=== PATIENT | male | born 1960 | race Caucasian/White ===

== ENCOUNTER 2018-09-24 08:52 | Observation (INO) | payer BC ==
[2018-09-24 11:51] LABS: Basophils % (A) 0 %; Eosinophils # (A) 0.1 k/uL (0-0.7); Eosinophils % (A) 1 %; HCT 45.8 % (39.0-53.0); HGB 14.6 gm/dL (13.0-17.5); Lymphocytes # (A) 1.3 k/uL (1.0-4.8); Lymphocytes % (A) 11 %; MCH 30.2 pg (25.0-35.0); MCHC 31.8 g/dL (31.0-37.0); MCV 95.1 fL (80.0-100.0); Mean Platelet Volume 7.9; Monocytes # (A) 0.8 k/uL (0-1.0); Monocytes % (A) 7 %; Neutrophils % (A) 79 %; Platelet Count 224 k/uL (150-450); RBC 4.82 m/uL (4.30-5.90); RDW 13.3 % (11.5-15.5); WBC 11.4 k/uL (3.8-10.6)
[2018-09-24 12:05] LABS: ALT 36 U/L (21-72); AST 26 U/L (17-59); Albumin 4.7 g/dL (3.5-5.0); Alkaline Phosphatase 75 U/L (38-126); Anion Gap 8 mmol/L; Blood Urea Nitrogen 23 mg/dL (9-20); Carbon Dioxide 26 mmol/L (22-30); Chloride 107 mmol/L (98-107); Glucose 105 mg/dL (74-99); Potassium 4.3 mmol/L (3.5-5.1); Sodium 141 mmol/L (137-145); Total Bilirubin 0.7 mg/dL (0.2-1.3); Total Protein 7.5 g/dL (6.3-8.2)
[2018-09-24 12:21] VITALS: BMI 23.5
[2018-09-24] MEDS: METOPROLOL TARTRATE 25 MG TAB PO SCH ×2 (14:21→20:34)
[2018-09-24] MEDS ORDERED: NITROGLYCERIN SL TABS 0.4 MG TAB SUBLINGUAL PRN (15:27)
--- NOTE | 2018-09-24 15:29 | P.CRDCN ---
History of Present Illness History of present illness: This is a pleasant 57-year-old male past medical history significant for gastroesophageal reflux disease, osteoarthritis, frequent palpitations in the past and occasional marijuana use. He denies history of coronary artery disease and has never seen a scout leaser for any reason. He presented to the hospital this morning for an outpatient Nino protocol stress test. Initially prior to starting his stress test he was in sinus mechanism no acute ST or T wave abnormalities noted. However once he began exercising and approximately 7 minutes into exercise he went into a wide complex tachycardia that appears to be a right ventricular outflow tachycardia. He became acutely dizzy and short of breath. Stress testing was stopped and he was admitted to the hospital for further evaluation. He denies symptoms of chest discomfort. At the time of my exam: CONSTITUTIONAL: Denies fever. Denies chills. EYES: Denies blurred vision. Denies vision changes. Denies eye pain. EARS, NOSE, MOUTH & THROAT: Denies headache. Denies sore throat. Denies ear pain. CARDIOVASCULAR: Denies chest pain. Denies shortness of breath. Denies orthopnea. Denies PND. Denies palpitations. RESPIRATORY: Denies cough. GASTROINTESTINAL: Denies abdominal pain. Denies diarrhea. Denies constipation. Denies nausea. Denies vomiting. MUSCULOSKELETAL: Denies myalgias. INTEGUMENTARY: Denies pruitis. Denies rash. NEUROLOGIC: Denies numbness. Denies tingling. Denies weakness. PSYCHIATRIC: Denies anxiety. Denies depression. ENDOCRINE: Denies fatigue. Denies weight change. Denies polydipsia. Denies polyurina. GENITOURINARY: Denies burning, hematuria or urgency with micturation. HEMATOLOGIC: Denies history of anemia. Denies bleeding. GENERAL: This is a 57-year-old male in no apparent distress at the time of my examination. HEENT: Head is atraumatic, normocephalic. Pupils are equal, round. Sclerae anicteric. Conjunctivae are clear. Mucous membranes of the mouth are moist. Neck is supple. There is no jugular venous distention. No carotid bruit is heard. LUNGS: Clear to auscultation no wheezes, rales or rhonchi. No chest wall tenderness is noted on palpation or with deep breathing. HEART: Regular rate and rhythm without murmurs, rubs or gallops. S1 and S2 heard. ABDOMEN: Soft, nontender. Bowel sounds are heard. No organomegaly noted. EXTREMITIES: No evidence of peripheral edema and no calf tenderness noted. VASCULAR: Radial and dorsalis pedis pulses palpated, no evidence of clubbing. NEUROLOGIC: Patient is awake, alert and oriented x3. ASSESSMENT Wide complex tachycardia while undergoing stress test, symptomatic Gastroesophageal reflux disease Marijuana use PLAN We will recommend placing the patient on observation for further evaluation of this acute arrhythmia. We have discussed this with his primary care physician Dr. Salinas and he will be admitted under [facility]. Dr. Hall has accepted the admit. We will obtain a 2-D echocardiogram and Doppler study to assess cardiac structure and function. Check CBC, CMP, magnesium level and TSH. Initiate the patient on metoprolol 25 mg twice a day. We will request he is seen and evaluated by Dr. Patterson as well. Further recommendations to follow. The plan has been discussed with the patient. Thank you kindly for this consultation. Nurse Practitioner note has been reviewed, I agree with a documented findings and plan of care. Patient was seen and examined. Past Medical History Past Medical History: GERD/Reflux, Osteoarthritis (OA) Additional Past Medical History / Comment(s): Pt states he recently had food poisoning and was seen for this and noted to be bradycardic, pt states he has felt "skipped" heart beats in the past, cervical bone spurs, occasional headaches, arthritis in his hands. History of Any Multi-Drug Resistant Organisms: None Reported Past Surgical History: No Surgical Hx Reported Additional Past Anesthesia/Blood Transfusion Reaction / Comment(s): Pt has never had general or spinal anesthesia. Smoking Status: Never smoker - Past Family History Father Family Medical History: Congestive Heart Failure (CHF), Hypertension Additional Family Medical History / Comment(s): Father of CHF at the age of 80yrs. Mother Family Medical History: Vascular Disorder Additional Family Medical History / Comment(s): Mother from a ruptured aortic aneurysm at the age of 84 yrs. Medications and Allergies Home Medications Medication Instructions Recorded Confirmed Type Naproxen Sodium [Aleve] 440 mg PO Q12HR PRN 12/21/15 09/24/18 History Allergies Allergy/AdvReac Type Severity Reaction Status Date / Time No Known Allergies Allergy Verified 09/24/18 13:02 Physical Exam Vitals: Vital Signs Temp Pulse Resp BP Pulse Ox 09/24/18 11:05 97.7 F 67 20 189/99 97 Intake and Output 09/23/18 09/24/18 09/24/18 22:59 06:59 14:59 Other: Weight 72.2 kg Results 09/24/18 11:30 09/24/18 11:30 Cardiac Enzymes 09/24/18 09/24/18 Range/Units 11:30 11:30 AST 26 (17-59) U/L Troponin I <0.012 (0.000-0.034) ng/mL CBC 09/24/18 Range/Units 11:30 WBC 11.4 H (3.8-10.6) k/uL RBC 4.82 (4.30-5.90) m/uL Hgb 14.6 (13.0-17.5) gm/dL Hct 45.8 (39.0-53.0) % Plt Count 224 (150-450) k/uL Comprehensive Metabolic Panel 09/24/18 Range/Units 11:30 Sodium 141 (137-145) mmol/L Potassium 4.3 (3.5-5.1) mmol/L Chloride 107 (98-107) mmol/L Carbon Dioxide 26 (22-30) mmol/L BUN 23 H (9-20) mg/dL Creatinine 0.96 (0.66-1.25) mg/dL Glucose 105 H (74-99) mg/dL Calcium 10.0 (8.4-10.2) mg/dL AST 26 (17-59) U/L ALT 36 (21-72) U/L Alkaline Phosphatase 75 (38-126) U/L Total Protein 7.5 (6.3-8.2) g/dL Albumin 4.7 (3.5-5.0) g/dL Current Medications Generic Name Dose Route Start Last Admin Trade Name Freq PRN Reason Stop Dose Admin Metoprolol Tartrate 25 mg 09/24/18 12:30 Lopressor PO BID WM Intake and Output 09/23/18 09/24/18 09/24/18 22:59 06:59 14:59 Other: Weight 72.2 kg Patient Weight 09/25/18 06:59 Weight 72.2 kg 09/24/18 11:30 09/24/18 11:30
--- NOTE | 2018-09-24 18:29 | ECHOF ---
Referral Reason:arrhythmia MEASUREMENTS -------- HEIGHT: 175.3 cm WEIGHT: 72.6 kg BP: RVIDd: 3.2 cm (< 3.3) IVSd: 0.9 cm (0.6 - 1.1) LVIDd: 4.7 cm (3.9 - 5.3) LVPWd: 1.0 cm (0.6 - 1.1) IVSs: 1.4 cm LVIDs: 2.6 cm LVPWs: 1.9 cm LAESV Index (A-L): 20.16 ml/m Ao Diam: 3.0 cm (2.0 - 3.7) AV Cusp: 2.1 cm (1.5 - 2.6) LA Diam: 2.8 cm (2.7 - 3.8) MV EXCURSION: 15.965 mm (> 18.000) MV EF SLOPE: 116 mm/s (70 - 150) EPSS: 0.4 cm MV E Toni: 0.75 m/s MV DecT: 219 ms MV A Toni: 1.21 m/s MV E/A Ratio: 0.62 AR PHT: 507 ms RAP: 5.00 mmHg RVSP: 27.48 mmHg FINDINGS -------- Sinus rhythm with extra systolic beats. This was a technically good study. The left ventricular size is normal. Left ventricular wall thickness is normal. Overall left vent ricular systolic function is normal with, an EF between 55 - 60 %. The right ventricle is normal in size. Normal LA size by volume 22+/-6 ml/m2. The right atrial size is normal. The aortic valve is trileaflet and appears structurally normal. Trace amount of aortic regurgitatio n. The mitral valve leaflets are mildly thickened. Mild mitral regurgitation is present. Mild tricuspid regurgitation present. The right ventricular systolic pressure, as measured by Doppl er, is 27.48mmHg. There is no pulmonic regurgitation present. The aortic root size is normal. Normal inferior vena cava with normal inspiratory collapse consistent with estimated right atrial pre ssure of 5 mmHg. The pericardium is normal. CONCLUSIONS -------- 1. Sinus rhythm with extra systolic beats. 2. This was a technically good study. 3. The left ventricular size is normal. 4. Left ventricular wall thickness is normal. 5. Overall left ventricular systolic function is normal with, an EF between 55 - 60 %. 6. The right ventricle is normal in size. 7. Normal LA size by volume 22+/-6 ml/m2. 8. The right atrial size is normal. 9. The aortic valve is trileaflet and appears structurally normal. 10. Trace amount of aortic regurgitation. 11. The mitral valve leaflets are mildly thickened. 12. Mild mitral regurgitation is present. 13. Mild tricuspid regurgitation present. 14. The right ventricular systolic pressure, as measured by Doppler, is 27.48mmHg. 15. There is no pulmonic regurgitation present. 16. The aortic root size is normal. 17. Normal inferior vena cava with normal inspiratory collapse consistent with estimated right atrial pressure of 5 mmHg. 18. The pericardium is normal. ROLL OVER PRESS OPERATOR: Yumiko Doss RDCS
[2018-09-24 20:00] VITALS: RESP 16
--- NOTE | 2018-09-24 22:50 | HP ---
HISTORY AND PHYSICAL DATE OF ADMISSION AND SERVICE: 09/24/2018. PRESENTING COMPLAINT: Abnormal stress test. HISTORY OF PRESENTING COMPLAINT: This is a pleasant 57-year-old patient of Dr. Jurgen Salinas. The patient had gone to see his physician special education assistant, and the physician special education assistant noted the patient to have a low heart rate. The patient was sent down to Cardiology. The patient went for a Nino protocol stress test, and probably about 7 minutes into the stress test the patient became dizzy, became short of breath, perspiring, and was noted to have a wide-complex tachycardia, for which he was admitted to the medical floor. He has had no further episodes since then. The patient is rather active and has good exercise tolerance otherwise. The patient was started on Lopressor by Cardiology. REVIEW OF SYSTEMS: CONSTITUTIONAL: None. HEENT: None. RESPIRATORY: None. CARDIOVASCULAR: As above. GASTROINTESTINAL: Heartburn. GENITOURINARY: None. MUSCULOSKELETAL: Arthritic pain in the hands. DERMATOLOGICAL: None. HEMATOLOGICAL: None. LYMPHATICS: None. PSYCHIATRY: None. NEUROLOGICAL: None. PAST MEDICAL HISTORY: 1. GERD. 2. Osteoarthritis. 3. Recent food poisoning. PAST SURGICAL HISTORY: No surgery. SOCIAL HISTORY: Lives with his . He is a electric welder. Marijuana occasionally. Alcohol occasionally. FAMILY HISTORY: Congestive heart failure, hypertension. Father had congestive heart failure. Mother had abdominal aortic aneurysm. HOME MEDICATIONS: Aleve 440 mg q.12 p.r.n. ALLERGIES: NONE. PHYSICAL EXAMINATION: Temperature 97.8, pulse 55, respiration 16, blood pressure 172/84, pulse ox 97% on room air. GENERAL APPEARANCE: Average build. Sitting up. Comfortable. EYES: Pupils equal. Conjunctivae normal. HEENT: External appearance of nose and ears normal. Oral cavity normal. NECK: JVD not raised. Mass not palpable. RESPIRATORY: Effort normal. Lungs are clear. CARDIOVASCULAR: First and second sounds normal. No edema. ABDOMEN: Soft, non-tender. Liver and spleen not palpable. LYMPHATIC: No lymph node palpable in neck or axillae. PSYCHIATRY: Alert and oriented x3. Mood and affect normal. NEUROLOGICAL: Pupils equal. Cranial nerves grossly intact. Power and sensation grossly intact. MUSCULOSKELETAL: Evidence of osteoarthritis, especially in the hands. INVESTIGATION: White count 11.4, hemoglobin 14.6, potassium 4.3, BUN 22, creatinine 0.96. Troponin negative. TSH normal. Two-D echocardiogram shows EF of 55% to 60%. ASSESSMENT: 1. Wide-complex tachycardia during the Nino stress protocol with symptoms of dizziness, shortness of breath and perspiration. 2. Gastroesophageal reflux disease. 3. Primary osteoarthritis of the hands. 4. Recreational marijuana use. 5. Essential hypertension. PLAN: Patient is currently on beta tia. Blood pressure is tending to run high. Will see how he does. Care was discussed with the patient. MMODL / IJN: [id number] /
[2018-09-25] MEDS: METOPROLOL TARTRATE 25 MG TAB PO SCH (08:02)
[2018-09-25 08:14] LABS: HCT 45.1 % (39.0-53.0); HGB 14.4 gm/dL (13.0-17.5); MCH 30.2 pg (25.0-35.0); MCV 94.3 fL (80.0-100.0); Mean Platelet Volume 8.1; Platelet Count 218 k/uL (150-450); RBC 4.78 m/uL (4.30-5.90); RDW 13.1 % (11.5-15.5); WBC 9.7 k/uL (3.8-10.6)
[2018-09-25 08:37] LABS: Anion Gap 12 mmol/L; Blood Urea Nitrogen 21 mg/dL (9-20); Calcium 9.8 mg/dL (8.4-10.2); Carbon Dioxide 20 mmol/L (22-30); Chloride 108 mmol/L (98-107); Glucose 76 mg/dL (74-99); Magnesium 1.9 mg/dL (1.6-2.3); Potassium 4.2 mmol/L (3.5-5.1); Sodium 140 mmol/L (137-145)
--- NOTE | 2018-09-25 09:20 | P.CRDCN ---
History of Present Illness History of present illness: This is Dr. 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 I explained his treatment options including medical treatment and EP study rate efficacy ablation. I wo uld recommend an EP study and ablation in the future at this time he may continue metoprolol 25 mg once daily, succinate. His heart rates usually run in the 50s-60s per minute at rest Success rates of greater than 90%, failure rates and the reason for the failure rates were explained, complications rates including but not limited to cardiac puncture electrical damage vascular injury were discussed. All questions were answered He will see Dr. VC Escoto within a week and thereafter will call to schedule for the procedure HPI Patient went to see his primary care physician Dr. Espinal. He was complaining of nausea and thought he had gastroenteritis. His heart rate was found to be in the slow side and therefore he was sent for stress test. When he ran on the treadmill he experienced ventricular tachycardia, exercise-induced originating from the right ventricular outflow tract he was short of breath and dizzy with this on more detailed questioning he does complain of palpitations although he has never had syncope nor has he felt like this before No diabetes hypertension dyslipidemia No family history of premature deaths or sudden of recurrent syncope ROS: No fever chills or rigors, no cough, phlegm or expectoration, no nausea, vomiting or diarrhea, no hematuria, dysuria, no musculoskeletal complaints, no strokes or seizures, no skin lesions. EXAMINATION: Blood pressure 131/82 mmHg pulse rate in the 50s him respirations afebrile Breath sounds are clear no rhonchi no crackles Normal heart sounds no murmurs or gallops no rub Abdomen soft Extended is warm no edema REVIEW OF LABS, ECG & MEDICAL DATA Normal hemoglobin of 14.4 normal white count Normal electrolytes normal renal function normal liver functions normal troponin Normal TSH Magnesium 1.9 Past Medical History Past Medical History: GERD/Reflux, Osteoarthritis (OA) Additional Past Medical History / Comment(s): Pt states he recently had food poisoning and was seen for this and noted to be bradycardic, pt states he has felt "skipped" heart beats in the past, cervical bone spurs, occasional headaches, arthritis in his hands. History of Any Multi-Drug Resistant Organisms: None Reported Past Surgical History: No Surgical Hx Reported Additional Past Anesthesia/Blood Transfusion Reaction / Comment(s): Pt has never had general or spinal anesthesia. Smoking Status: Never smoker - Past Family History Father Family Medical History: Congestive Heart Failure (CHF), Hypertension Additional Family Medical History / Comment(s): Father of CHF at the age of 80yrs. Mother Family Medical History: Vascular Disorder Additional Family Medical History / Comment(s): Mother from a ruptured aortic aneurysm at the age of 84 yrs. Medications and Allergies Home Medications Medication Instructions Recorded Confirmed Type Naproxen Sodium [Aleve] 440 mg PO Q12HR PRN 12/21/15 09/24/18 History Allergies Allergy/AdvReac Type Severity Reaction Status Date / Time No Known Allergies Allergy Verified 09/24/18 13:02 Physical Exam Vitals: Vital Signs Temp Pulse Resp BP Pulse Ox 09/25/18 08:00 97.7 F 58 L 16 162/80 97 09/25/18 05:26 98.5 F 60 16 131/82 98 09/25/18 00:00 98.2 F 54 L 16 142/87 98 09/24/18 19:55 97.8 F 55 L 16 172/84 97 09/24/18 15:16 98.1 F 55 L 20 153/82 97 09/24/18 11:05 97.7 F 67 20 189/99 97 Intake and Output 09/24/18 09/25/18 09/25/18 22:59 06:59 14:59 Intake Total 250 20 270 Balance 250 20 270 Intake: IV 10 20 10 0.9 10 Invasive Line 1 20 10 Oral 240 260 Other: Voiding Method Toilet Toilet # Voids 1 Weight 70.7 kg Results 09/25/18 07:43 09/25/18 07:43 Cardiac Enzymes 09/24/18 09/24/18 Range/Units 11:30 11:30 AST 26 (17-59) U/L Troponin I <0.012 (0.000-0.034) ng/mL CBC 09/24/18 09/25/18 Range/Units 11:30 07:43 WBC 11.4 H 9.7 (3.8-10.6) k/uL RBC 4.82 4.78 (4.30-5.90) m/uL Hgb 14.6 14.4 (13.0-17.5) gm/dL Hct 45.8 45.1 (39.0-53.0) % Plt Count 224 218 (150-450) k/uL Comprehensive Metabolic Panel 09/24/18 09/25/18 Range/Units 11:30 07:43 Sodium 141 140 (137-145) mmol/L Potassium 4.3 4.2 (3.5-5.1) mmol/L Chloride 107 108 H (98-107) mmol/L Carbon Dioxide 26 20 L (22-30) mmol/L BUN 23 H 21 H (9-20) mg/dL Creatinine 0.96 1.00 (0.66-1.25) mg/dL Glucose 105 H 76 (74-99) mg/dL Calcium 10.0 9.8 (8.4-10.2) mg/dL AST 26 (17-59) U/L ALT 36 (21-72) U/L Alkaline Phosphatase 75 (38-126) U/L Total Protein 7.5 (6.3-8.2) g/dL Albumin 4.7 (3.5-5.0) g/dL Current Medications Generic Name Dose Route Start Last Admin Trade Name Freq PRN Reason Stop Dose Admin Metoprolol Tartrate 25 mg 09/24/18 12:30 09/25/18 08:02 Lopressor PO 25 mg BID WM Administration Nitroglycerin 0.4 mg 09/24/18 15:27 Nitrostat SUBLINGUAL Q5M PRN Chest Pain Intake and Output 09/24/18 09/25/18 09/25/18 22:59 06:59 14:59 Intake Total 250 20 270 Balance 250 20 270 Intake: IV 10 20 10 0.9 10 Invasive Line 1 20 10 Oral 240 260 Other: Voiding Method Toilet Toilet # Voids 1 Weight 70.7 kg 09/25/18 07:43 09/25/18 07:43
--- NOTE | 2018-09-25 09:21 | P.PRLE ---
RE: Izaiah Thompsonr Jurgen Mr. Thompson experienced right ventricular outflow tract VT during stress testing associated with shortness of breath and dizziness. He is currently on low-dose metoprolol but I would recommend proceeding with an EP study and ablation. His TSH is normal and his chronic enzymes are normal electrolytes were normal He does have a history of palpitations but he has never experienced of felt sustained arrhythmias Thank you for entrusting me with the care of the patient Warm regards Sincerely Ha Patterson
[2018-09-25] MEDS ORDERED: MAGNESIUM OXIDE 400 MG TAB PO STA (09:34)
[2018-09-25 11:02] VITALS: BP 149/86; PULSE 52; TEMP 98.2
--- NOTE | 2018-09-25 15:00 | EST ---
EXERCISE STRESS AGE: 57 SEX: Male. HT: 69" WT: 165 pounds PROTOCOL: STAGE: 3 DURATION OF EXERCISE: 7:23 HEART RATE REST: BLOOD PRESSURE REST: 148/98 MAXIMUM HEART RATE ACHIEVED: 121 MAXIMUM BLOOD PRESSURE: 192/91 85% MPHR: 138 100% MPHR: 162 METS: 9.3 INDICATIONS: Bradycardia, chest pain. CLINICAL INFORMATION: The patient was exercised for a total period of 7 minutes and 30 seconds. Peak heart rate of 121 was achieved. Maximum blood pressure of 190/91 mmHg was noted. The test was terminated because of cardiac arrhythmia. Resting EKG shows normal sinus rhythm with a QRS morphology suggestive of incomplete right bundle branch block pattern noted. Occasional PVCs were noted in the early part of the exercise. During the 7 minutes in exercise, patient had one run of non-sustained ventricular tachycardia. Subsequently patient continued to have PVCs. At peak exercise patient developed wide QRS complex tachycardia of left bundle branch block pattern. It was suggestive of right ventricular outflow tract tachycardia. The patient did not have any symptoms, and subsequently patient converted to normal sinus rhythm. FINAL IMPRESSION: This patient had intermittent PVCs during exercise and at the peak exercise patient developed wide QRS complex tachycardia suggestive of right ventricular outflow tract tachycardia, which persisted for about 2 minutes in the immediate post-exercise period. This was not associated with any symptoms. Intermittent subsequent PVCs were noted in the recovery. In view of the cardiac arrhythmia, patient was admitted to the observation unit for observation. NAIF / TONO: [id number] /
--- NOTE | 2018-09-26 09:03 | DS ---
DISCHARGE SUMMARY DATE OF ADMISSION: 09/24/18 DATE OF DISCHARGE: 09/25/18. FINAL DIAGNOSES: 1. Wide-complex outflow tract tachycardia symptomatic during Nino stress protocol. 2. Gastroesophageal reflux disease. 3. Primary osteoarthritis of the hands. 4. Recreational marijuana use. 5. Essential hypertension. HOSPITAL COURSE: This patient above underwent above arrhythmia during Nino stress protocol and that had to be discontinued, admitted. Seen by Dr. Ha Patterson. The patient remained stable overnight in the hospital. The patient will be followed up with an EP study. PHYSICAL EXAMINATION: Temperature 98.2, pulse 72, respiration 16, blood pressure 149/86, pulse ox 95% on room air. Lungs: Fair entry. Cardiovascular: 1st and 2nd sounds normal. INVESTIGATION: Potassium 4.2. DISCHARGE MEDICATIONS: 1. Naproxen 450 mg q.12 p.r.n. 2. Lopressor 25 mg p.o. b.i.d. Follow with Dr. Jurgen Salinas in [address] Sacha Escoto on 09/30/18. MMODL / IJN: [id number] /
== END 2018-09-25 14:36 | disposition home or self-care (01) ==
LOC: RADNMMAIN 08:52 → 3SCARD 11:14
PROVIDERS: ADMIT Hospitalist; ATTEND Hospitalist
DX: R00.0 Tachycardia, unspecified (principal); K21.9 Gastro-esophageal reflux disease without esophagitis; M19.042 Primary osteoarthritis, left hand; M19.041 Primary osteoarthritis, right hand; R94.39 Abnormal result of other cardiovascular function study; R00.2 Palpitations; I10 Essential (primary) hypertension; Z82.49 Family history of ischemic heart disease and other diseases of the circulatory system
CPT/HCPCS: 93017; 93306; 80053; 80048; 84443; 83735; 84484; 85025; 85027; G0378 ×2

== ENCOUNTER → 2018-10-29 | Outpatient (CLI) | payer BC ==
[2018-10-29 16:50] LABS: Potassium 4.2 mmol/L (3.5-5.1)
[2018-10-29 16:59] LABS: HCT 40.2 % (39.0-53.0); HGB 13.4 gm/dL (13.0-17.5); MCH 31.1 pg (25.0-35.0); MCHC 33.3 g/dL (31.0-37.0); MCV 93.4 fL (80.0-100.0); Mean Platelet Volume 8.1; Platelet Count 225 k/uL (150-450); RBC 4.31 m/uL (4.30-5.90); RDW 13.5 % (11.5-15.5); WBC 7.7 k/uL (3.8-10.6)
== END ==
LOC: LABPAT 15:57
PROVIDERS: ATTEND Internal Medicine Cardiovascular Disease
DX: Z01.812 Encounter for preprocedural laboratory examination (principal); I47.2 Ventricular tachycardia
CPT/HCPCS: 36415; 80051; 82565; 84520; 85027

== ENCOUNTER 2018-11-05 10:49 | Day surgery (SDC) | payer BC ==
[~2018-11-05 10:49] MED LIST: ALPRAZolam 0.25 MG TAB PO PRN; ALPRAZolam 0.5 MG TAB PO PRN; ASPIRIN 325 MG TAB PO STA; ATORVASTATIN 80 MG TAB PO STA; NITROGLYCERIN SL TABS 0.4 MG TAB SUBLINGUAL PRN; SODIUM CHLORIDE 0.9% 1,000 ML in EMPTY BAG 1 BAG IV ONE
[2018-11-05] MEDS ORDERED: SODIUM CHLORIDE 0.9% 1,000 ML IV ONE (11:30)
[2018-11-05] MEDS ORDERED: MIDAZOLAM (PF) 2 MG/2 ML VIAL IVP ONE (14:03)
[2018-11-05] MEDS ORDERED: fentaNYL (PF) 50 MCG/ML 2 ML AMP IV ONE (14:03)
[2018-11-05] MEDS ORDERED: LIDOCAINE 1% INJ 10MG/ML (20 ML MDV) SQ ONE (14:05)
[2018-11-05] MEDS ORDERED: IOPAMIDOL-370 100ML BTL INJ ONE (14:19)
[2018-11-05] MEDS ORDERED: IOPAMIDOL-370 50ML BTL INJ ONE (14:19)
[2018-11-05] MEDS ORDERED: RX INFO: IV CONTRAST WAS GIVEN 1 EACH MISC MISCELLANE PRN (14:37)
[2018-11-05] MEDS ORDERED: SODIUM CHLORIDE 0.9% 1,000 ML IV SCH (14:45)
[2018-11-05 15:17] VITALS: BMI 23.3
[2018-11-05 20:40] VITALS: BP 139/83; TEMP 98.5
[2018-11-05 20:45] VITALS: PULSE 56; RESP 17
--- NOTE | 2019-01-04 12:03 | CC ---
CARDIAC CATHETERIZATION REPORT Mr. Thompson is a 58-year-old gentleman who was initially evaluated for atypical chest pain. Patient developed right ventricular outflow tract tachycardia during exercise. In view of that, the patient was recommended to have a cardiac catheterization for definitive diagnosis. PROCEDURE: The right groin was prepped and draped in the usual manner and the skin was infiltrated with 1% Xylocaine. The right femoral artery was obtained with micropuncture needle under ultrasound guidance. A #6-Mozambican sheath was placed in. Selective coronary angiography was then performed in multiple projections and good hemostasis was achieved. HEMODYNAMICS: The left ventricular end-diastolic pressure is 18-20 mmHg prior to angiography. No gradient is noted across the aortic valve. Left main coronary artery is normal and patent. LAD is a good caliber blood vessel and gives a good size diagonal branch. LAD and its branches are normal. Circumflex coronary artery gives rise to a good size obtuse marginal branch. The circumflex coronary artery and its branches are normal right coronary artery is a normal caliber blood vessel. It is dominant in distribution and it is normal. FINAL IMPRESSION: This study reveals normal coronary arteries. Left ventricular end-diastolic pressure is mildly elevated. RECOMMENDATION: Medical treatment. Patient is supposed to undergo the VT, right ventricular outflow tract tachycardia ablation in a couple of weeks by Dr. Patterson. MMODL / IJN: [id number] /
== END 2018-11-05 21:30 | disposition home or self-care (01) ==
LOC: CATHCVL 10:49 → 1SOBS 14:30 → CATHCVL 21:30
PROVIDERS: ATTEND Internal Medicine Cardiovascular Disease
DX: I47.2 Ventricular tachycardia (principal); Z79.1 Long term (current) use of non-steroidal anti-inflammatories (NSAID); Z79.899 Other long term (current) drug therapy
CPT/HCPCS: 93458; C1894; C1769; J2001; J3010; Q9967 ×2; J2250

== ENCOUNTER 2018-11-25 07:49 | Day surgery (SDC) | payer BC ==
[2018-11-23 11:34] VITALS: BMI 23.6
[2018-11-25] MEDS ORDERED: MIDAZOLAM (PF) 2 MG/2 ML VIAL IV PRN (10:09)
[2018-11-25] MEDS ORDERED: ONDANSETRON 4 MG/2 ML VIAL IVP STA (14:30)
[2018-11-25] MEDS ORDERED: MIDAZOLAM 2 MG/2 ML VIAL ONE (14:39)
[2018-11-25] MEDS ORDERED: fentaNYL (PF) 50 MCG/ML 2 ML AMP ONE (14:39)
[2018-11-25] MEDS ORDERED: SODIUM CHLORIDE 0.9% 1,000 ML IV ONE (14:42)
[2018-11-25] MEDS ORDERED: LIDOCAINE 1% INJ 10MG/ML (20 ML MDV) ONE (14:51)
[2018-11-25] MEDS ORDERED: LIDOCAINE 1% INJ 10MG/ML (20 ML MDV) SQ ONE (15:13)
[2018-11-25] MEDS ORDERED: HEPARIN SODIUM (1,000 UNIT/ML) 1,000 UNIT in SODIUM CHLORIDE 0.9% 1,000 ML IRRIGATION ONE (15:52)
[2018-11-25] MEDS ORDERED: ACETAMINOPHEN TAB 325 MG TAB PO PRN (16:50)
[2018-11-25] MEDS ORDERED: ACETAMINOPHEN IV (For NPO) 1,000 MG in EMPTY BAG 1 BAG IVPB ONE (16:50)
[2018-11-25] MEDS ORDERED: HYDROcodone/APAP 5-325MG 1 EACH TAB PO PRN (16:50)
--- NOTE | 2018-11-25 17:07 | P.PRLE ---
RE: Izaiah Thompsonr Jurgen Mr. Thompson underwent a diagnostic EP study and a detailed mapping of his right ventricular PVCs. However the PVCs were mapped exactly on to the His bundle. We are 100% pace map as well as a perfect activation map right over the His bundle Therefore obviously we did not ablate the focus and instead started him on flecainide 50 g twice daily. I have stopped metoprolol We will see him again in follow-up in a week Thank you for entrusting me with the care of the patient Warm regards Sincerely Ha Patterson
[2018-11-25] MEDS: SODIUM CHLORIDE 0.9% 1,000 ML IV SCH (19:39)
[2018-11-25] MEDS: FLECAINIDE 50 MG TAB PO SCH (21:49)
--- NOTE | 2018-11-25 22:23 | PCN ---
PROCEDURE NOTE This is a 58-year-old male patient of Dr. Jurgen Salinas and Dr. Sacha Escoto who was referred for evaluation and management of very frequent PVCs and nonsustained ventricular tachycardia that appeared to be originating from the right ventricle. He underwent coronary angiography which did not reveal any coronary artery disease. His LV and RV size and function is normal. DESCRIPTION OF PROCEDURE: Patient was brought to the EP lab in a fasting state. Written informed consent was obtained prior to the procedure. The right and left groins were prepped and draped as per protocol. 1% lidocaine was used for local anesthesia. Venous sheaths were placed in the right femoral vein and via these, diagnostic and mapping ablation catheters were placed. Sinus cycle length 908 milliseconds, NE interval 140 milliseconds, QRS 103 milliseconds QT 356 milliseconds. AH interval 86 milliseconds, HV interval 35 milliseconds. The patient was experiencing frequent PVCs that had a left bundle branch block morphology on lead V1 and upright QRS in 2, 3 and AVF as well as an upright QRS is in lead 1. Intracardiac echocardiography was performed. A 3D anatomic map of the right ventricle was made and the tricuspid and pulmonic valves were tagged. The 3D mapping of the aortic root was performed. Thereafter, mapping ablation catheter was placed in the right ventricle and electroanatomic 3D mapping was performed. An activation map as well as pace mapping was performed. The activation pace mapping revealed that the earliest site was exactly on the proximal his bundle. Excellent early bipolar electrograms were noted at this site. The unipolar electrogram was deep negative at this site. Therefore decision was made not to proceed with RF ablation because of risk of AV block. This was discussed with the patient. I discussed with the family. We will treat him with flecainide 50 mg twice daily and stop metoprolol. IMPRESSION: Diagnostic EP study 3D electro anatomic mapping revealed that the clinical PVC was originating from very close to the His bundle area. There was a His bundle signal at the earliest activation site. RF ablation obviously was not performed for risk of AV block. PLAN: Continue flecainide 50 mg twice daily and follow up with Dr. Patterson in about 6 weeks for followup Holter monitor. MMODL / IJN: [id number] /
[2018-11-26 05:17] VITALS: PULSE 56
--- NOTE | 2018-11-26 07:38 | P.DS ---
Providers Attending physician: Ha Patterson Primary care physician: [facility] Course: Patient is doing well. He is lying comfortably in bed. He has no chest discomfort dizziness lightheadedness palpitations Yesterday I started him on flecainide 50 mg twice daily Today his telemetry shows normal sinus rhythm Twelve-lead ECG shows sinus rhythm normal cardiac intervals no PVCs His vitals are stable But pressure 131/72 mmHg, respirations heart rates in the 50s afebrile 98.3F Breath sounds are clear no rhonchi no crackles no adventitious sounds Normal heart sounds normal S1 normal S2 no murmurs or gallops or rub Extremities warm no edema Impression PVCs originating from the right ventricle, in the area of the His bundle. Activation mapping as well as pace mapping revealed that the ventricular focus is exactly on the His bundle area. In sinus rhythm is a His bundle spike of this area Therefore ablation was withheld Flecainide was initiated Plan Follow-up with Dr. Escoto in about a week for a groin check Follow-up with Dr. Trujillo in about 6 weeks to assess efficacy and tolerance to flecainide Plan - Discharge Summary Discharge Rx Participant: No New Discharge Prescriptions: No Action Metoprolol Tartrate [Lopressor] 25 mg PO DAILY Discharge Medication List Metoprolol Tartrate [Lopressor] 25 mg PO DAILY 11/05/18 [History] Follow up Appointment(s)/Referral(s): London Escoto MD [STAFF PHYSICIAN] - 2 Weeks Activity/Diet/Wound Care/Special Instructions: Post EP study - Ablation instructions 1. Keep access sites dry for 2 days. 2. No heavy lifting or straining for 2 days. 3. Avoid bending the hips repeatedly for 2 days. 4. You may go up and down stairs slowly Call if the following is noted 1. Bleeding, increasing swelling or pain at the access sites. 2. Increasing chest discomfort, especially upon taking a deep breath. 3. Increasing shortness of breath, at rest or with exertion. 4. Undue cough / phlegm 5. Difficulty or pain while swallowing. 6. Pain or change in color in the extremities. 7. Fever, chills, rigors. 8. Increasing headache or neurologic symptoms. 9. Dizziness, fainting, palpitations Medications discontinued Metoprolol New medication Flecainide 50 mg twice daily
[2018-11-26] MEDS: FLECAINIDE 50 MG TAB PO SCH (08:03)
[2018-11-26] MEDS: SODIUM CHLORIDE 0.9% 1,000 ML IV SCH (08:06)
[2018-11-26 08:08] VITALS: BP 130/71; RESP 16; TEMP 98.1
[2018-11-26] MEDS ORDERED: METOPROLOL SUCCINATE (ER) 25 MG TAB.ER.24H PO SCH (09:00)
== END 2018-11-26 11:04 ==
LOC: CATHEP 07:49 → 1SOBS 17:31 → CATHEP 11-26 11:04
PROVIDERS: ATTEND Internal Medicine Clinical Cardiac Electrophysiology
DX: I47.2 Ventricular tachycardia (principal); I49.3 Ventricular premature depolarization; Z79.1 Long term (current) use of non-steroidal anti-inflammatories (NSAID); Z79.899 Other long term (current) drug therapy; I44.7 Left bundle-branch block, unspecified
CPT/HCPCS: 93662; 93620; 93613; C1894; C1769 ×2; C1730; C1759; C1893; C1732; J2250; J2405; J2001; J3010; J1644

== ENCOUNTER → 2019-07-19 | Outpatient (CLI) | payer BC ==
[2019-07-20 00:04] LABS: Chol/HDL Ratio 3.91; LDL Cholesterol,Calculated 100.6 mg/dL (0.0-131.0); VLDL Calculation 24.4 mg/dL (5.00-40.00)
== END | disposition home or self-care (01) ==
LOC: LABWHC1 15:59
PROVIDERS: ATTEND Nurse Practitioner Adult Health
DX: E78.5 Hyperlipidemia, unspecified (principal)
CPT/HCPCS: 36415; 80061

== ENCOUNTER 2020-04-06 07:34 | Observation (INO) | payer BC ==
[2020-04-06] MEDS ORDERED: MORPHINE SULFATE 2 MG/ML SYRINGE IVP STA (07:49)
[2020-04-06] MEDS ORDERED: ASPIRIN 81 MG PO STA (07:49)
--- NOTE | 2020-04-06 07:58 | ED ---
General Adult HPI - General Chief complaint: Chest Pain Stated complaint: chest pain, not feeling well Time Seen by Provider: 04/06/20 07:44 Source: patient Mode of arrival: ambulatory Limitations: no limitations - History of Present Illness Initial comments: 59yo male with history of exercise induced ventricular tachycardia presenting for 2 days of "not feeling right" patient states that 2 days ago he felt unwell and was struggling with what he states was heart burn, he states yesterday he took tums which seemed to help. Patient states he vomited yesterday morning and woke up this morning around 4AM with a recorded fever of 102F and sweats patient states he took medications to lower his fever. Patietn states that he has an episode chest discomfort and then began dry heaving. He states that at time but not consistently the pain seems to increase with deep respiration. Pt Denies leg swelling, history of DVT/PE, hemoptysis, cancer, exogenous hormone use, recent surgeries, or immobilization. Patient denies cough, URI symptoms, urinary symptoms, abdominal pain, diarrhea. Denies rashes. Patient denies experiencing this in the past. Patient states he though the strained his chest maybe by puking and wanted to be sure, patient presented to the ER for cc of chest discomfort. In September patient states he had a catheterizing without intervention. Denies RUQ pain, back pain, dark/bloody stools. Patient denies additional complaints - Related Data Home Medications Medication Instructions Recorded Confirmed Naproxen Sodium [Aleve] 220 mg PO DAILY PRN 04/06/20 04/06/20 Allergies Allergy/AdvReac Type Severity Reaction Status Date / Time No Known Allergies Allergy Verified 04/06/20 09:04 Review of Systems ROS Statement: Those systems with pertinent positive or pertinent negative responses have been documented in the HPI. ROS Other: All systems not noted in ROS Statement are negative. Past Medical History Past Medical History: GERD/Reflux, Hypertension, Osteoarthritis (OA) Additional Past Medical History / Comment(s): Pt states he recently had food poisoning 08/2018 and was seen for this and noted to be bradycardic, pt states he has felt "skipped" heart beats in the past, cervical bone spurs, occasional headaches, arthritis in his hands. History of Any Multi-Drug Resistant Organisms: None Reported Past Surgical History: Heart Catheterization Additional Past Surgical History / Comment(s): SX FOR IMPACTED WISDOM TOOTH Additional Past Anesthesia/Blood Transfusion Reaction / Comment(s): Pt has never had general or spinal anesthesia. Past Psychological History: No Psychological Hx Reported Smoking Status: Never smoker Past Alcohol Use History: Rare Past Drug Use History: Marijuana - Past Family History Father Family Medical History: Congestive Heart Failure (CHF), Hypertension Additional Family Medical History / Comment(s): Father of CHF at the age of 80yrs. Mother Family Medical History: Vascular Disorder Additional Family Medical History / Comment(s): Mother from a ruptured aortic aneurysm at the age of 84 yrs. General Exam - General Exam Comments Initial Comments: General: The patient is awake and alert, in no distress Eye: +3 mm pupils are equal, round and reactive to light, extra-ocular movements are intact. No nystagmus. There is normal conjunctiva bilaterally. No signs of icterus. Ears, nose, mouth and throat: There are moist mucous membranes and no oral lesions. Neck: The neck is supple, there is no tenderness or JVD. Cardiovascular: There is a regular rate and rhythm. No murmur, rub or gallop is appreciated. Respiratory: Lungs are clear to auscultation, respirations are non-labored, breath sounds are equal. No wheezes, stridor, rales, or rhonchi. Gastrointestinal: Soft, non-distended, non-tender abdomen without masses or organomegaly noted. There is no rebound or guarding present. Musculoskeletal: Normal ROM, no tenderness. Strength 5/5. Sensation intact. Radial pulses equal bilaterally 2+. Neurological: A&O x 3. CN II-XII intact grossly, There are no obvious motor or sensory deficits. Coordination appears grossly intact. Speech is normal. Skin: Skin is warm and dry and no rashes or lesions are noted. No LE edema, no calf pain to palpation. Psychiatric: Cooperative, appropriate mood & affect, normal judgment. Limitations: no limitations Course Vital Signs 04/06/20 07:36 Temperature 97.8 F Pulse Rate 71 Respiratory 18 Rate Blood Pressure 199/84 O2 Sat by Pulse 100 Oximetry - Reevaluation(s) Reevaluation #1: Actively vomiting zofran and protonix will be ordered. 04/06/20 08:10 EKG Findings - EKG Comments: EKG Findings:: Ventricular rate 52 bpm, FL interval 120 ms, QRS duration 98 ms, QT/QTC 488/453. As a sinus bradycardia no ST elevation or depression is appreciated Medical Decision Making - Medical Decision Making Chest discomfort, fever, vomiting-cc. Afebrile in ER. CXR clear. EKG no acute findings. Troponin (-). Continues to have nausea, vomiting. Patient will be admitted for serial troponin and monitoring. Patient agreeable to care plan and admission. Dr. Nelson reviewed EKG and is agreeable to care plan. - Lab Data Result diagrams: 04/06/20 08:02 04/06/20 08:02 Lab Results 04/06/20 04/06/20 04/06/20 Range/Units 08:02 08:02 08:02 WBC 11.7 H (3.8-10.6) k/uL RBC 4.65 (4.30-5.90) m/uL Hgb 14.5 (13.0-17.5) gm/dL Hct 42.7 (39.0-53.0) % MCV 91.8 (80.0-100.0) fL MCH 31.1 (25.0-35.0) pg MCHC 33.9 (31.0-37.0) g/dL RDW 12.8 (11.5-15.5) % Plt Count 262 (150-450) k/uL Neutrophils % 86 % Lymphocytes % 9 % Monocytes % 4 % Eosinophils % 1 % Basophils % 0 % Neutrophils # 10.0 H (1.3-7.7) k/uL Lymphocytes # 1.0 (1.0-4.8) k/uL Monocytes # 0.4 (0-1.0) k/uL Eosinophils # 0.1 (0-0.7) k/uL Basophils # 0.0 (0-0.2) k/uL PT 9.9 (9.0-12.0) sec INR 0.9 (<1.2) APTT 22.6 (22.0-30.0) sec D-Dimer 0.58 (<0.60) mg/L FEU Sodium (137-145) mmol/L Potassium (3.5-5.1) mmol/L Chloride (98-107) mmol/L Carbon Dioxide (22-30) mmol/L Anion Gap mmol/L BUN (9-20) mg/dL Creatinine (0.66-1.25) mg/dL Est GFR (CKD-EPI)AfAm (>60 ml/min/1.73 sqM) Est GFR (CKD-EPI)NonAf (>60 ml/min/1.73 sqM) Glucose (74-99) mg/dL Plasma Lactic Acid Alexi (0.7-2.0) mmol/L Calcium (8.4-10.2) mg/dL Magnesium (1.6-2.3) mg/dL Total Bilirubin (0.2-1.3) mg/dL AST (17-59) U/L ALT (4-49) U/L Alkaline Phosphatase (38-126) U/L Troponin I (0.000-0.034) ng/mL Total Protein (6.3-8.2) g/dL Albumin (3.5-5.0) g/dL Lipase (23-300) U/L Urine Color Yellow Urine Appearance Clear (Clear) Urine pH 8.0 (5.0-8.0) Ur Specific Clover 1.029 (1.001-1.035) Urine Protein 1+ H (Negative) Urine Glucose (UA) Negative (Negative) Urine Ketones 4+ H (Negative) Urine Blood Small H (Negative) Urine Nitrite Negative (Negative) Urine Bilirubin Negative (Negative) Urine Urobilinogen <2.0 (<2.0) mg/dL Ur Leukocyte Esterase Negative (Negative) Urine RBC 18 H (0-5) /hpf Urine WBC 1 (0-5) /hpf Urine Mucus Moderate H (None) /hpf 04/06/20 04/06/20 04/06/20 Range/Units 08:02 08:02 08:02 WBC (3.8-10.6) k/uL RBC (4.30-5.90) m/uL Hgb (13.0-17.5) gm/dL Hct (39.0-53.0) % MCV (80.0-100.0) fL MCH (25.0-35.0) pg MCHC (31.0-37.0) g/dL RDW (11.5-15.5) % Plt Count (150-450) k/uL Neutrophils % % Lymphocytes % % Monocytes % % Eosinophils % % Basophils % % Neutrophils # (1.3-7.7) k/uL Lymphocytes # (1.0-4.8) k/uL Monocytes # (0-1.0) k/uL Eosinophils # (0-0.7) k/uL Basophils # (0-0.2) k/uL PT (9.0-12.0) sec INR (<1.2) APTT (22.0-30.0) sec D-Dimer (<0.60) mg/L FEU Sodium 139 (137-145) mmol/L Potassium 3.7 (3.5-5.1) mmol/L Chloride 109 H (98-107) mmol/L Carbon Dioxide 21 L (22-30) mmol/L Anion Gap 9 mmol/L BUN 22 H (9-20) mg/dL Creatinine 1.03 (0.66-1.25) mg/dL Est GFR (CKD-EPI)AfAm >90 (>60 ml/min/1.73 sqM) Est GFR (CKD-EPI)NonAf 79 (>60 ml/min/1.73 sqM) Glucose 150 H (74-99) mg/dL Plasma Lactic Acid Alexi 2.0 (0.7-2.0) mmol/L Calcium 9.9 (8.4-10.2) mg/dL Magnesium 1.6 (1.6-2.3) mg/dL Total Bilirubin 0.7 (0.2-1.3) mg/dL AST 30 (17-59) U/L ALT 30 (4-49) U/L Alkaline Phosphatase 87 (38-126) U/L Troponin I <0.012 (0.000-0.034) ng/mL Total Protein 7.2 (6.3-8.2) g/dL Albumin 4.5 (3.5-5.0) g/dL Lipase 86 (23-300) U/L Urine Color Urine Appearance (Clear) Urine pH (5.0-8.0) Ur Specific Clover (1.001-1.035) Urine Protein (Negative) Urine Glucose (UA) (Negative) Urine Ketones (Negative) Urine Blood (Negative) Urine Nitrite (Negative) Urine Bilirubin (Negative) Urine Urobilinogen (<2.0) mg/dL Ur Leukocyte Esterase (Negative) Urine RBC (0-5) /hpf Urine WBC (0-5) /hpf Urine Mucus (None) /hpf Disposition Clinical Impression: Nausea & vomiting, Chest pain Disposition: ADMITTED IP TO THIS [facility] Condition: Stable Is patient prescribed a controlled substance at d/c from ED?: No Referrals: Jurgen Salinas MD [Primary Care Provider] - 1-2 days Time of Disposition: 10:09 Decision to Admit Reason: Admit from EC Decision Date: 04/06/20 Decision Time: 10:09
[2020-04-06] MEDS ORDERED: ONDANSETRON 4 MG/2 ML VIAL IVP STA (08:08)
[2020-04-06] MEDS ORDERED: PANTOPRAZOLE 40 MG/10 ML VIAL IVP STA (08:15)
[2020-04-06 08:21] LABS: Basophils % (A) 0 %; Eosinophils # (A) 0.1 k/uL (0-0.7); Eosinophils % (A) 1 %; HCT 42.7 % (39.0-53.0); HGB 14.5 gm/dL (13.0-17.5); Lymphocytes % (A) 9 %; MCH 31.1 pg (25.0-35.0); MCHC 33.9 g/dL (31.0-37.0); MCV 91.8 fL (80.0-100.0); Mean Platelet Volume 7.7; Monocytes # (A) 0.4 k/uL (0-1.0); Monocytes % (A) 4 %; Neutrophils % (A) 86 %; Platelet Count 262 k/uL (150-450); RBC 4.65 m/uL (4.30-5.90); RDW 12.8 % (11.5-15.5); WBC 11.7 k/uL (3.8-10.6)
[2020-04-06 08:30] LABS: ALT 30 U/L (4-49); AST 30 U/L (17-59); African American GFR (CKD) >90 (>60 ml/min/1.73 sqM); Albumin 4.5 g/dL (3.5-5.0); Alkaline Phosphatase 87 U/L (38-126); Anion Gap 9 mmol/L; Blood Urea Nitrogen 22 mg/dL (9-20); Calcium 9.9 mg/dL (8.4-10.2); Carbon Dioxide 21 mmol/L (22-30); Chloride 109 mmol/L (98-107); Glucose 150 mg/dL (74-99); Magnesium 1.6 mg/dL (1.6-2.3); Non-African American GFR(CKD) 79 (>60 ml/min/1.73 sqM); Potassium 3.7 mmol/L (3.5-5.1); Sodium 139 mmol/L (137-145); Total Bilirubin 0.7 mg/dL (0.2-1.3); Total Protein 7.2 g/dL (6.3-8.2)
[2020-04-06 08:34] LABS: D-Dimer 0.58 mg/L FEU (<0.60); INR 0.9 (<1.2); Partial Thromboplastin Time 22.6 sec (22.0-30.0); Prothrombin Time 9.9 sec (9.0-12.0)
--- NOTE | 2020-04-06 08:49 | XR ---
EXAMINATION TYPE: XR chest 2V DATE OF EXAM: 04/06/2020 COMPARISON: Chest x-ray March 23, 2012. HISTORY: Lower chest pain. TECHNIQUE: Frontal and lateral views of the chest are obtained. FINDINGS: Background underlying emphysematous change is suspected. There is no new suspicious focal a ir space opacity, pleural effusion, or pneumothorax seen. The cardiac silhouette size remains within normal limits. Mild multilevel spurring in the thoracic spine. Overlying EKG leads are redemonstrate d. IMPRESSION: No acute cardiopulmonary process. No significant change from prior
--- NOTE | 2020-04-06 08:51 | XR ---
EXAMINATION TYPE: XR KUB DATE OF EXAM: 04/06/2020 8:41 AM CLINICAL HISTORY: Nausea and vomiting. TECHNIQUE: Two Upright KUB images of the abdomen are obtained. COMPARISON: None. FINDINGS: Gas bubble in nondistended stomach. Slight paucity of small bowel gas. Visualized gas is se en in non-distended small bowel loops. Gas and fecal material is seen in non-distended colon. There i s no visceromegaly or pneumoperitoneum appreciated. Occasional scattered pelvic phleboliths bilateral ly. The lung bases are clear. Mild to moderate right greater than left superior joint space loss in b oth hips with mild to moderate acetabular spurring bilaterally. IMPRESSION: Overall nonobstructive bowel gas pattern is present.
[2020-04-06 09:52] LABS: Appearance,Urine Clear (Clear); Bilirubin,Urine Negative (Negative); Blood,Urine Small (Negative); Color,Urine Yellow; Glucose,Urine (UA) Negative (Negative); Ketones,Urine 4+ (Negative); Leukocyte Esterase,Urine Negative (Negative); Mucus,Urine Moderate /hpf; Nitrite,Urine Negative (Negative); Protein,Urine 1+ (Negative); RBC,Urine 18 /hpf (0-5); Specific Gravity,Urine 1.029 (1.001-1.035); Urobilinogen,Urine <2.0 mg/dL (<2.0); WBC,Urine 1 /hpf (0-5)
[2020-04-06] MEDS ORDERED: NITROGLYCERIN SL TABS 0.4 MG TAB SUBLINGUAL PRN (09:57)
[2020-04-06] MEDS ORDERED: ONDANSETRON 4 MG/2 ML VIAL IVP PRN (10:07)
[2020-04-06 13:42] VITALS: BP 169/93; PULSE 63; RESP 18; TEMP 98.1
[2020-04-06] MEDS ORDERED: MORPHINE SULFATE 2 MG/ML SYRINGE IVP PRN (13:51)
[2020-04-07] MEDS ORDERED: ASPIRIN 325 MG TAB PO SCH (09:00)
--- NOTE | 2020-04-10 21:07 | P.HPIM ---
History of Present Illness H&P Date: 04/10/20 Patient left from the ER, AMA. Did not want to be seen. Patient was not seen by me. For more details refer to the ER notes. Past Medical History Past Medical History: GERD/Reflux, Hypertension, Osteoarthritis (OA) Additional Past Medical History / Comment(s): Pt states he recently had food poisoning 08/2018 and was seen for this and noted to be bradycardic, pt states he has felt "skipped" heart beats in the past, cervical bone spurs, occasional headaches, arthritis in his hands. History of Any Multi-Drug Resistant Organisms: None Reported Past Surgical History: Heart Catheterization Additional Past Surgical History / Comment(s): SX FOR IMPACTED WISDOM TOOTH Additional Past Anesthesia/Blood Transfusion Reaction / Comment(s): Pt has never had general or spinal anesthesia. Past Psychological History: No Psychological Hx Reported Smoking Status: Never smoker Past Alcohol Use History: Rare Past Drug Use History: Marijuana - Past Family History Father Family Medical History: Congestive Heart Failure (CHF), Hypertension Additional Family Medical History / Comment(s): Father of CHF at the age of 80yrs. Mother Family Medical History: Vascular Disorder Additional Family Medical History / Comment(s): Mother from a ruptured aortic aneurysm at the age of 84 yrs. Medications and Allergies Home Medications Medication Instructions Recorded Confirmed Type Naproxen Sodium [Aleve] 220 mg PO DAILY PRN 04/06/20 04/06/20 History Allergies Allergy/AdvReac Type Severity Reaction Status Date / Time No Known Allergies Allergy Verified 04/06/20 09:04 Results CBC & Chem 7: 04/06/20 08:02 04/06/20 08:02 Labs: Microbiology - Last 24 Hours (Table) 04/06/20 08:02 Blood Culture - Preliminary Blood No Growth after 96 hours
--- NOTE | 2020-04-10 21:08 | P.DS ---
Providers Date of admission: 04/06/20 11:47 Expected date of discharge: 04/06/20 Attending physician: You Alicia Primary care physician: Jurgen Salinas [facility] Course: Patient left from the ER, AMA. Did not want to be seen. Patient was not seen by me. For more details refer to the ER notes. Patient Condition at Discharge: Undetermined Plan - Discharge Summary New Discharge Prescriptions: No Action Naproxen Sodium [Aleve] 220 mg PO DAILY PRN PRN Reason: Pain Discharge Medication List Naproxen Sodium [Aleve] 220 mg PO DAILY PRN 04/06/20 [History] Follow up Appointment(s)/Referral(s): Jurgen Salinas MD [Primary Care Provider] - 1-2 days Discharge Disposition: Left Against Medical Advice
== END 2020-04-06 15:40 | disposition left against medical advice (07) ==
LOC: EC 07:34 → 3NCARDOBS 11:47
PROVIDERS: ADMIT Hospitalist; ATTEND Hospitalist
DX: R07.9 Chest pain, unspecified (principal); I10 Essential (primary) hypertension; Z82.49 Family history of ischemic heart disease and other diseases of the circulatory system; K21.9 Gastro-esophageal reflux disease without esophagitis; M19.90 Unspecified osteoarthritis, unspecified site
CPT/HCPCS: 96376; 96374; 96375; 99285; 36415; 93005; 85379; 80053; 83605; 83690; 83735; 84484; 85025; 85610; 85730; 81001; 87040; 71046; 74018; G0378; J2405; J2270; C9113

== ENCOUNTER 2023-10-30 09:09 | Emergency (ER) | payer BC ==
--- NOTE | 2023-10-30 09:15 | ED ---
Nausea/Vomiting/Diarrhea HPI - General Source: patient, RN notes reviewed Mode of arrival: ambulatory Limitations: no limitations <Parisa Hester - Last Filed: 10/30/23 09:16> - General Source: patient, RN notes reviewed Mode of arrival: ambulatory Limitations: no limitations <Bisi Gary - Last Filed: 10/30/23 17:32> - General Chief complaint: Nausea/Vomiting/Diarrhea Stated complaint: abd pain Time Seen by Provider: 10/30/23 09:12 - History of Present Illness Initial comments: Quick Note: This is a 63-year-old male who presents to the emergency department for nausea and vomiting. Symptoms started 4 days ago. Reports generalized abdominal discomfort and feelings of acid reflux. Denies any fevers/chills. (Parisa Hester) This is a 63-year-old male with a chief complaint of nausea and vomiting over the past few days. Patient states that he has had a decreased appetite and has been unable to keep food down over this time. He states that the color of his emesis is green and yellow, denies hematemesis. States that he has diffuse mild abdominal pain that feels similar to his GERD but she has a history of. Patient states that he was seen at urgent care where they sent him home with Zofran. He denies fevers, diarrhea, shortness of breath, chest pain/pressure, palpitations. Endorses slight fatigue, states that he feels dehydrated. Denies dysuria, hemat uria, hematochezia, dark or tarry stools. Denies previous abdominal surgeries. (Bisi Gary) - Related Data Home Medications Medication Instructions Recorded Confirmed Ondansetron Odt [Zofran Odt] 8 mg PO BID PRN 10/30/23 10/30/23 Previous Rx's Medication Instructions Recorded Ondansetron Odt [Zofran Odt] 4 mg PO Q8HR PRN #10 tab 10/30/23 Allergies Allergy/AdvReac Type Severity Reaction Status Date / Time No Known Allergies Allergy Verified 10/30/23 12:08 Review of Systems ROS Other: All systems not noted in ROS Statement are negative. <aPrisa Hester - Last Filed: 10/30/23 09:16> ROS Other: All systems not noted in ROS Statement are negative. <Bisi Gary - Last Filed: 10/30/23 17:32> ROS Statement: Those systems with pertinent positive or pertinent negative responses have been documented in the HPI. Past Medical History Past Medical History: GERD/Reflux, Hypertension, Osteoarthritis (OA) Additional Past Medical History / Comment(s): Pt states he recently had food poisoning 08/2018 and was seen for this and noted to be bradycardic, pt states he has felt "skipped" heart beats in the past, cervical bone spurs, occasional headaches, arthritis in his hands. History of Any Multi-Drug Resistant Organisms: None Reported Past Surgical History: Heart Catheterization Additional Past Surgical History / Comment(s): SX FOR IMPACTED WISDOM TOOTH Additional Past Anesthesia/Blood Transfusion Reaction / Comment(s): Pt has never had general or spinal anesthesia. Past Psychological History: No Psychological Hx Reported Smoking Status: Never smoker Past Alcohol Use History: Rare Past Drug Use History: Marijuana - Past Family History Father Family Medical History: Congestive Heart Failure (CHF), Hypertension Additional Family Medical History / Comment(s): Father of CHF at the age of 80yrs. Mother Family Medical History: Vascular Disorder Additional Family Medical History / Comment(s): Mother from a ruptured aortic aneurysm at the age of 84 yrs. <Parisa Hester - Last Filed: 10/30/23 09:16> General Exam <Parisa Hester - Last Filed: 10/30/23 09:16> General appearance: alert, in no apparent distress Head exam: Present: atraumatic, normocephalic, normal inspection Eye exam: Present: normal appearance, PERRL, EOMI. Absent: scleral icterus, conjunctival injection, periorbital swelling ENT exam: Present: mucous membranes dry Neck exam: Present: normal inspection. Absent: tenderness, meningismus, lymphadenopathy Respiratory exam: Present: normal lung sounds bilaterally. Absent: respiratory distress, wheezes, rales, rhonchi, stridor Cardiovascular Exam: Present: regular rate, normal rhythm, normal heart sounds. Absent: systolic murmur, diastolic murmur, rubs, gallop, clicks GI/Abdominal exam: Present: soft, normal bowel sounds. Absent: distended, tenderness, guarding, rebound, rigid Extremities exam: Present: normal inspection, full ROM, normal capillary refill. Absent: tenderness, pedal edema, joint swelling, calf tenderness Back exam: Present: normal inspection Neurological exam: Present: alert, oriented X3, CN II-XII intact Psychiatric exam: Present: normal affect, normal mood Skin exam: Present: warm, dry, intact, normal color. Absent: rash <Bisi Gary - Last Filed: 10/30/23 17:32> - General Exam Comments Initial Comments: Visual Physical Exam Vital signs reviewed General: Well-appearing, nontoxic, no acute distress. Head: Normocephalic, atraumatic Eyes: PERRLA, EOMI ENT: Airway patent Chest: Nonlabored breathing Skin: No visual rash, normal skin tone Neuro: Alert and oriented 3 Musculoskeletal: No gross abnormalities (Parisa Hester) Course Vital Signs 10/30/23 10/30/23 09:13 13:24 Temperature 97.6 F Pulse Rate 72 57 L Respiratory 18 18 Rate Blood Pressure 202/96 174/81 O2 Sat by Pulse 100 99 Oximetry Medical Decision Making <Parisa Hester - Last Filed: 10/30/23 09:16> - Lab Data Result diagrams: 10/30/23 09:17 10/30/23 09:17 <Bisi Gary - Last Filed: 10/30/23 17:32> - Medical Decision Making I performed the QuickNote portion of this chart. Signed Parisa Hester PA-C. (Parisa Hester) Was pt. sent in by a medical professional or institution ([facility], EDUCATION REP, urgent care, hospital, or care home...) When possible be specific @ -No Did you speak to anyone other than the patient for history (EMS, parent, family, police, friend...)? What history was obtained from this source @ -No Did you review nursing and triage notes (agree or disagree)? Why? @ -I reviewed and agree with nursing and triage notes Were old charts reviewed (outside hosp., previous admission, EMS record, old EKG, old radiological studies, urgent care reports/EKG's, care home records)? Report findings @ -No old charts were reviewed Differential Diagnosis (chest pain, altered mental status, abdominal pain women, abdominal pain men, vaginal bleeding, weakness, fever, dyspnea, syncope, headache, dizziness, GI bleed, back pain, seizure, CVA, palpatations, mental health, musculoskeletal)? @Differential Abdominal Pain Men: Appendicitis, cholecystitis, diverticulosis, ischemic bowel, pancreatitis, hepatitis, UTI, gastroenteritis, AAA, incarcerated hernia, bowel obstruction, constipation, inflammatory bowel, hepatitis, peptic ulcer disease, splenic infarction, perforated viscus, testicular torsion, this is not meant to be an all-inclusive list EKG interpreted by me (3pts min.). @ -none X-rays interpreted by me (1pt min.). @ -None done CT interpreted by me (1pt min.). @ -None done U/S interpreted by me (1pt. min.). @ -None done What testing was considered but not performed or refused? (CT, X-rays, U/S, labs)? Why? @ -None What meds were considered but not given or refused? Why? @ -None Did you discuss the management of the patient with other professionals (professionals i.e. , PA, EDUCATION REP, lab, RT, psych nurse, director of social work, bond analyst, teacher, global chief experience officer, ed case manager)? Give summary @ -No Was smoking cessation discussed for >3mins.? @ -No Was critical care preformed (if so, how long)? @ -No Were there social determinants of health that impacted care today? How? (Homelessness, low income, unemployed, alcoholism, drug addiction, transportation, low edu. Level, literacy, decrease access to med. care, assisted, rehab)? @ -No Was there de-escalation of care discussed even if they declined (Discuss DNR or withdrawal of care, Hospice)? DNR status @ -No What co-morbidities impacted this encounter? (DM, HTN, Smoking, COPD, CAD, Cancer, CVA, ARF, Chemo, Hep., AIDS, mental health diagnosis, sleep apnea, morbid obesity)? @ -None Was patient admitted / discharged? Hospital course, mention meds given and route, prescriptions, significant lab abnormalities, going to OR and other pertinent info. @ -Discharge. 63-year-old male with complaint of nausea and vomiting. On examination patient noted to have dry mucous membranes. Abdomen is soft nontender no signs of rigidity, equal bowel sounds heard without. This time patient started on 1 L fluid bolus in addition to IV push of Zofran. Patient stating he is still experiencing nausea on reevaluation and given IVP reglan. Laboratory results remarkable for mild leukocytosis 12.7 and increased neutrophils of 10.6. CMP grossly within normal limits. Troponin nonelevated. Urinalysis remarkable for ketones consistent with dehydration. Reevaluation of patient after 2 L fluid bolus and medications states that he is feeling better. Reviewed lab results with the patient and vital signs stable patient is amenable for discharge. Discussed tricked return parameters with the patient. Recommend follow-up with his primary care provider next week for further evaluation. Patient given prescription for Zofran as needed for symptoms of gastroenteritis. Nonconcerning for acute intra-abdominal process at this time due to stable labs in addition to relatively benign abdominal examination. Undiagnosed new problem with uncertain prognosis? @ -No Drug Therapy requiring intensive monitoring for toxicity (Heparin, Nitro, Insulin, Cardizem)? @ -No Were any procedures done? @ -No Diagnosis/symptom? @ -nausea, vomiting, gastroenteritis Acute, or Chronic, or Acute on Chronic? @ -acute Uncomplicated (without systemic symptoms) or Complicated (systemic symptoms)? @ -uncomplicated Side effects of treatment? @ -No Exacerbation, Progression, or Severe Exacerbation? @ -No Poses a threat to life or bodily function? How? (Chest pain, USA, ID, pneumonia, PE, COPD, DKA, ARF, appy, cholecystitis, CVA, Diverticulitis, Homicidal, Suicidal, threat to staff... and all critical care pts) @ -No (Bisi Gary) - Lab Data Lab Results 10/30/23 10/30/23 10/30/23 Range/Units 09:17 09:17 09:17 WBC 12.7 H (3.8-10.6) k/uL RBC 4.55 (4.30-5.90) m/uL Hgb 14.2 (13.0-17.5) gm/dL Hct 42.3 (39.0-53.0) % MCV 92.9 (80.0-100.0) fL MCH 31.2 (25.0-35.0) pg MCHC 33.6 (31.0-37.0) g/dL RDW 12.7 (11.5-15.5) % Plt Count 243 (150-450) k/uL MPV 8.1 Neutrophils % 84 % Lymphocytes % 8 % Monocytes % 6 % Eosinophils % 0 % Basophils % 0 % Neutrophils # 10.6 H (1.3-7.7) k/uL Lymphocytes # 1.0 (1.0-4.8) k/uL Monocytes # 0.8 (0-1.0) k/uL Eosinophils # 0.0 (0-0.7) k/uL Basophils # 0.0 (0-0.2) k/uL Sodium 136 L (137-145) mmol/L Potassium 3.6 (3.5-5.1) mmol/L Chloride 104 (98-107) mmol/L Carbon Dioxide 22 (22-30) mmol/L Anion Gap 10 mmol/L BUN 28 H (9-20) mg/dL Creatinine 1.11 (0.66-1.25) mg/dL Est GFR (CKD-EPI)AfAm 81 (>60 ml/min/1.73 sqM) Est GFR (CKD-EPI)NonAf 70 (>60 ml/min/1.73 sqM) Glucose 122 H (74-99) mg/dL Calcium 9.6 (8.4-10.2) mg/dL Magnesium 1.8 (1.6-2.3) mg/dL Total Bilirubin 0.9 (0.2-1.3) mg/dL AST 35 (17-59) U/L ALT 33 (4-49) U/L Alkaline Phosphatase 89 (38-126) U/L Troponin I (0.000-0.034) ng/mL Total Protein 7.8 (6.3-8.2) g/dL Albumin 4.7 (3.5-5.0) g/dL Amylase 64 (30-110) U/L Lipase 59 (23-300) U/L Urine Color Yellow Urine Appearance Clear (Clear) Urine pH 6.0 (5.0-8.0) Ur Specific [place] 1.026 (1.001-1.035) Urine Protein Trace H (Negative) Urine Glucose (UA) Negative (Negative) Urine Ketones 2+ H (Negative) Urine Blood Moderate H (Negative) Urine Nitrite Negative (Negative) Urine Bilirubin Negative (Negative) Urine Urobilinogen <2.0 (<2.0) mg/dL Ur Leukocyte Esterase Negative (Negative) Urine RBC 14 H (0-5) /hpf Urine WBC 1 (0-5) /hpf Ur Squamous Epith Cells <1 (0-4) /hpf Urine Mucus Few H (None) /hpf Influenza Type A (PCR) (Not Detectd) Influenza Type B (PCR) (Not Detectd) RSV (PCR) (Not Detectd) SARS-CoV-2 (PCR) (Not Detectd) 10/30/23 10/30/23 Range/Units 09:17 09:17 WBC (3.8-10.6) k/uL RBC (4.30-5.90) m/uL Hgb (13.0-17.5) gm/dL Hct (39.0-53.0) % MCV (80.0-100.0) fL MCH (25.0-35.0) pg MCHC (31.0-37.0) g/dL RDW (11.5-15.5) % Plt Count (150-450) k/uL MPV Neutrophils % % Lymphocytes % % Monocytes % % Eosinophils % % Basophils % % Neutrophils # (1.3-7.7) k/uL Lymphocytes # (1.0-4.8) k/uL Monocytes # (0-1.0) k/uL Eosinophils # (0-0.7) k/uL Basophils # (0-0.2) k/uL Sodium (137-145) mmol/L Potassium (3.5-5.1) mmol/L Chloride (98-107) mmol/L Carbon Dioxide (22-30) mmol/L Anion Gap mmol/L BUN (9-20) mg/dL Creatinine (0.66-1.25) mg/dL Est GFR (CKD-EPI)AfAm (>60 ml/min/1.73 sqM) Est GFR (CKD-EPI)NonAf (>60 ml/min/1.73 sqM) Glucose (74-99) mg/dL Calcium (8.4-10.2) mg/dL Magnesium (1.6-2.3) mg/dL Total Bilirubin (0.2-1.3) mg/dL AST (17-59) U/L ALT (4-49) U/L Alkaline Phosphatase (38-126) U/L Troponin I <0.012 (0.000-0.034) ng/mL Total Protein (6.3-8.2) g/dL Albumin (3.5-5.0) g/dL Amylase (30-110) U/L Lipase (23-300) U/L Urine Color Urine Appearance (Clear) Urine pH (5.0-8.0) Ur Specific [place] (1.001-1.035) Urine Protein (Negative) Urine Glucose (UA) (Negative) Urine Ketones (Negative) Urine Blood (Negative) Urine Nitrite (Negative) Urine Bilirubin (Negative) Urine Urobilinogen (<2.0) mg/dL Ur Leukocyte Esterase (Negative) Urine RBC (0-5) /hpf Urine WBC (0-5) /hpf Ur Squamous Epith Cells (0-4) /hpf Urine Mucus (None) /hpf Influenza Type A (PCR) Not Detected (Not Detectd) Influenza Type B (PCR) Not Detected (Not Detectd) RSV (PCR) Not Detected (Not Detectd) SARS-CoV-2 (PCR) Not Detected (Not Detectd) Disposition <Parisa Hester - Last Filed: 10/30/23 09:16> Is patient prescribed a controlled substance at d/c from ED?: No Time of Disposition: 13:32 <Bisi Gary - Last Filed: 10/30/23 17:32> Clinical Impression: Nausea & vomiting, Gastroenteritis Narrative: Please return to the Emergency Department if symptoms worsen or any other concerns. (Bisi Gary) Disposition: HOME SELF-CARE Condition: Good Instructions (If sedation given, give patient instructions): Acute Nausea and Vomiting (ED) Prescriptions: Ondansetron Odt [Zofran Odt] 4 mg PO Q8HR PRN #10 tab PRN Reason: Nausea Referrals: None,Stated [Primary Care Provider] - 1-2 days
[2023-10-30 09:40] VITALS: RESP 18; TEMP 97.6
[2023-10-30 10:19] LABS: Basophils % (A) 0 %; Eosinophils % (A) 0 %; HCT 42.3 % (39.0-53.0); HGB 14.2 gm/dL (13.0-17.5); Lymphocytes % (A) 8 %; MCH 31.2 pg (25.0-35.0); MCHC 33.6 g/dL (31.0-37.0); MCV 92.9 fL (80.0-100.0); Mean Platelet Volume 8.1; Monocytes # (A) 0.8 k/uL (0-1.0); Monocytes % (A) 6 %; Neutrophils # (A) 10.6 k/uL (1.3-7.7); Neutrophils % (A) 84 %; Platelet Count 243 k/uL (150-450); RBC 4.55 m/uL (4.30-5.90); RDW 12.7 % (11.5-15.5); WBC 12.7 k/uL (3.8-10.6)
[2023-10-30 10:25] LABS: ALT 33 U/L (4-49); AST 35 U/L (17-59); African American GFR (CKD) 81 (>60 ml/min/1.73 sqM); Albumin 4.7 g/dL (3.5-5.0); Alkaline Phosphatase 89 U/L (38-126); Amylase 64 U/L (30-110); Anion Gap 10 mmol/L; Blood Urea Nitrogen 28 mg/dL (9-20); Calcium 9.6 mg/dL (8.4-10.2); Carbon Dioxide 22 mmol/L (22-30); Chloride 104 mmol/L (98-107); Glucose 122 mg/dL (74-99); Lipase 59 U/L (23-300); Magnesium 1.8 mg/dL (1.6-2.3); Non-African American GFR(CKD) 70 (>60 ml/min/1.73 sqM); Potassium 3.6 mmol/L (3.5-5.1); Sodium 136 mmol/L (137-145); Total Bilirubin 0.9 mg/dL (0.2-1.3); Total Protein 7.8 g/dL (6.3-8.2)
[2023-10-30] MEDS: ONDANSETRON 4 MG/2 ML VIAL IVP STA (11:47)
[2023-10-30] MEDS: SODIUM CHLORIDE 0.9% 2,000 ML IV STA (11:47)
[2023-10-30] MEDS: PANTOPRAZOLE 40 MG/10 ML VIAL IVP STA (12:02)
[2023-10-30] MEDS: METOCLOPRAMIDE 5 MG/ML 2 ML VIAL IVP STA (12:23)
[2023-10-30 13:31] VITALS: BP 174/81; PULSE 57
[2023-10-30 13:47] LABS: Appearance,Urine Clear (Clear); Bilirubin,Urine Negative (Negative); Blood,Urine Moderate (Negative); Color,Urine Yellow; Glucose,Urine (UA) Negative (Negative); Ketones,Urine 2+ (Negative); Leukocyte Esterase,Urine Negative (Negative); Mucus,Urine Few /hpf; Nitrite,Urine Negative (Negative); Protein,Urine Trace (Negative); RBC,Urine 14 /hpf (0-5); Specific Gravity,Urine 1.026 (1.001-1.035); Squamous Epithelial Cell,Urine <1 /hpf (0-4); Urobilinogen,Urine <2.0 mg/dL (<2.0); WBC,Urine 1 /hpf (0-5)
== END 2023-10-30 13:40 | disposition home or self-care (01) ==
LOC: EC 09:09
DX: K52.9 Noninfective gastroenteritis and colitis, unspecified (principal); Z11.52 Encounter for screening for COVID-19
CPT/HCPCS: 36415; 93005; 80053; 82150; 83690; 83735; 84484; 85025; 81001; 87636; 99284; 96374; 96375 ×2; 96361 ×2; J2765; J2405; C9113

== ENCOUNTER 2024-03-14 15:10 | Emergency (ER) | payer BC ==
[2024-03-14 15:21] VITALS: RESP 16
--- NOTE | 2024-03-14 17:25 | ED ---
General Adult HPI - General Chief complaint: GI Bleed Stated complaint: GI Bleed Time Seen by Provider: 03/14/24 16:53 Source: patient Mode of arrival: ambulatory Limitations: no limitations - History of Present Illness Initial comments: Pt is a 63-year-old gentleman presenting today for episode of bloody stool. This is not happened to the patient before. Thursday night he felt something wet in his underwear, went to the bathroom and found bright red blood in his underwear. This morning he had a bowel movement and bright red blood filled the toilet. This afternoon he had a small hard stool with no blood. States his stools are brown, not black or tarry. No abdominal pain or rectal pain. No lightheadedness, dizziness, generalized weakness, diaphoresis shortness of breath or chest pain. Denies abdominal pain. No prior abdominal surgeries. Does not use blood thinners. No history of easy bleeding or bruising. - Related Data Home Medications Medication Instructions Recorded Confirmed No Known Home Medications 03/14/24 03/14/24 Allergies Allergy/AdvReac Type Severity Reaction Status Date / Time No Known Allergies Allergy Verified 03/14/24 18:49 Review of Systems ROS Statement: Those systems with pertinent positive or pertinent negative responses have been documented in the HPI. Past Medical History Past Medical History: GERD/Reflux, Hypertension, Osteoarthritis (OA) Additional Past Medical History / Comment(s): Pt states he recently had food poisoning 08/2018 and was seen for this and noted to be bradycardic, pt states he has felt "skipped" heart beats in the past, cervical bone spurs, occasional headaches, arthritis in his hands. History of Any Multi-Drug Resistant Organisms: None Reported Past Surgical History: Heart Catheterization Additional Past Surgical History / Comment(s): SX FOR IMPACTED WISDOM TOOTH Additional Past Anesthesia/Blood Transfusion Reaction / Comment(s): Pt has never had general or spinal anesthesia. Past Psychological History: No Psychological Hx Reported Smoking Status: Never smoker Past Alcohol Use History: Rare Past Drug Use History: Marijuana - Past Family History Father Family Medical History: Congestive Heart Failure (CHF), Hypertension Additional Family Medical History / Comment(s): Father of CHF at the age of 80yrs. Mother Family Medical History: Vascular Disorder Additional Family Medical History / Comment(s): Mother from a ruptured aortic aneurysm at the age of 84 yrs. General Exam - General Exam Comments Initial Comments: PE: CONSTITUTIONAL: No apparent distress, well appearing SKIN: Warm, dry, no jaundice, hives or petechiae EYES: Pupils are equally round, extraocular movements intact without nystagmus, clear conjunctiva, non-icteric sclera, no conjunctival pallor HENT: Normocephalic, atraumatic, moist mucus membranes, oropharynx clear without exudates NECK: , Full range of motion, normal appearance PULMONARY: Clear to auscultation without wheezes, rhonchi, or rales, normal excursion, no accessory muscle use and no stridor CARDIOVASCULAR: Regular rate, rhythm, normal S1 and S2. No appreciated murmurs, rubs or gallops. Strong radial pulses with intact distal perfusion. No lower extremity edema GASTROINTESTINAL: Soft, non-tender, non-distended, no palpable masses, no rebound or guarding. No hepatosplenomegaly, rectal exam performed with VIK Hall at bedside, showed no rectal fissure, hemorrhoid masses on digital rectal exam, small amount of red-maroon stool noted on glove GENITOURINARY: MUSCULOSKELETAL: Extremities have no gross deformity, no edema, redness, or swelling. NEUROLOGIC:_a/o x 3, GCS 15, normal mentation and speech. Moves all extremities x 4 without motor or sensory deficit PSYCHIATRIC:_normal mood and affect, thought process is clear and linear Limitations: no limitations Course Vital Signs 03/14/24 03/14/24 03/14/24 15:18 17:33 17:51 Temperature 97.9 F 98.7 F Pulse Rate 69 54 L Respiratory 16 16 Rate Blood Pressure 159/85 181/105 166/93 O2 Sat by Pulse 97 97 Oximetry 03/14/24 19:24 Temperature 98.2 F Pulse Rate 57 L Respiratory 16 Rate Blood Pressure 195/96 O2 Sat by Pulse 99 Oximetry Medical Decision Making - Medical Decision Making Was pt. sent in by a medical professional or institution (SAROJ Thompson, REPAIR CLERK, urgent care, hospital, or snf...) When possible be specific @ -No Did you speak to anyone other than the patient for history (EMS, parent, family, police, friend...)? What history was obtained from this source @ -No Did you review nursing and triage notes (agree or disagree)? Why? @ -History GERD, reflux hypertension and osteoarthritis reviewed triage note, patient arrives with complaint of blood in stool patient reports dark red blood last night started he when he sat down and saturated his underwear, vitals on arrival are reassuring, temp 97.9 degrees oral heart rate 69, blood pressure 159/85 respiratory rate 16 pulse ox 97% on room air patient most recently seen in the emergency department on 10/2023 for nausea vomiting and diarrhea Were old charts reviewed (outside hosp., previous admission, EMS record, old EKG, old radiological studies, urgent care reports/EKG's, snf records)? Report findings @ -See above Differential Diagnosis (chest pain, altered mental status, abdominal pain women, abdominal pain men, vaginal bleeding, weakness, fever, dyspnea, syncope, headache, dizziness, GI bleed, back pain, seizure, CVA, palpatations, mental health, musculoskeletal)? @ -Differential diagnose remains broad over top considerations include diverticulitis, inflammatory bowel disease, hemorrhoids, fissure, colitis this is not all-inclusive list EKG interpreted by me (3pts min.). @ -As above X-rays interpreted by me (1pt min.). @ -None done CT interpreted by me (1pt min.). @ -None done U/S interpreted by me (1pt. min.). @ -None done What testing was considered but not performed or refused? (CT, X-rays, U/S, l abs)? Why? @I did consider CT GI bleed study however patient's abdomen soft nontender, vitals are stable, stools are light brown and less stool was not bloody, GI bleed study likely to be of low utility due to these features What meds were considered but not given or refused? Why? @ -None Did you discuss the management of the patient with other professionals (professionals i.e. Dr., PA, REPAIR CLERK, lab, RT, psych nurse, vp digital marketing social media and crm, catalogue maker, teacher, cra officer, director of casework department)? Give summary @ -No Was smoking cessation discussed for >3mins.? @ -No Was critical care preformed (if so, how long)? @ -No Were there social determinants of health that impacted care today? How? (Homelessness, low income, unemployed, alcoholism, drug addiction, transportation, low edu. Level, literacy, decrease access to med. care, half-way, rehab)? @ -No Was there de-escalation of care discussed even if they declined (Discuss DNR or withdrawal of care, Hospice)? @ -No What co-morbidities impacted this encounter? (DM, HTN, Smoking, COPD, CAD, Cancer, CVA, ARF, Chemo, Hep., AIDS, mental health diagnosis, sleep apnea, morbid obesity)? @ -None Was patient admitted / discharged? Hospital course, mention meds given and route, prescriptions, significant lab abnormalities, going to OR and other pertinent info. @ -Hospital course Patient is a 63-year-old male history GERD, hypertension presenting today for bright red stools x 2. Vital stable on arrival. Physical exam shows well- appearing a pleasant 63-year-old gentleman in no acute distress. No conjunctival pallor, abdomen is soft and nontender, rectal exam performed with no signs of rectal fissures or bleeding hemorrhoids, no masses on MIR, red/ maroon stool on glove after exam. Differential diagnosis as above. CBC, CMP obtained to ensure no significant anemia, AMADO, no lactic acidosis. If reassuring and patient feels well, anticipate discharge. If signs of significant blood loss or unexplained lactic acidosis will consider further imaging. Labs reviewed. Grossly within normal limits. Abnormal values not concerning for acute pathology related to presenting complaint. Updated patient reassuring findings. He is comfortable discharge home at this point. He will be given contact information for follow-up with GI specialist Dr. Cagle. We discussed signs symptoms warranting return to the emergency department. In my medical judgment there is currently no evidence of an immediate life- threatening or surgical condition. Discharge is therefore indicated at this time. Discharge treatment instructions, follow up instructions, and appropriate emergency department return precautions were discussed with the patient and/or medical decision maker. Patient and/or medical decision maker expressed understanding of and agreed with the treatment plan, follow up instructions, and emergency department return precaution. All patient's and/or medical decision maker's questions were answered. The patient was advised that a small risk still exists that a serious condition could develop and was therefore instructed to return to the ED for any changes in symptoms, persistent symptoms, inability to obtain proper follow-up or for any further concerns. Patient received verbal and written instructions for this condition. Undiagnosed new problem with uncertain prognosis? @ -No Drug Therapy requiring intensive monitoring for toxicity (Heparin, Nitro, Insulin, Cardizem)? @ -No Were any procedures done? @ -No Diagnosis/symptom? @ -Hematochezia Acute, or Chronic, or Acute on Chronic? @ -Acute Uncomplicated (without systemic symptoms) or Complicated (systemic symptoms)? @ -Uncomplicated Side effects of treatment? @ -No Exacerbation, Progression, or Severe Exacerbation? @ -No Poses a threat to life or bodily function? How? (Chest pain, [place], [place], pneumonia, PE, COPD, DKA, ARF, appy, cholecystitis, CVA, Diverticulitis, Homicidal, Suicidal, threat to staff... and all critical care pts) @ -No - Lab Data Result diagrams: 03/14/24 17:51 03/14/24 17:51 Lab Results 03/14/24 03/14/24 03/14/24 Range/Units 17:30 17:45 17:51 WBC 7.2 (3.8-10.6) k/uL RBC 4.20 L (4.30-5.90) m/uL Hgb 13.5 (13.0-17.5) gm/dL Hct 39.1 (39.0-53.0) % MCV 93.2 (80.0-100.0) fL MCH 32.1 (25.0-35.0) pg MCHC 34.4 (31.0-37.0) g/dL RDW 12.7 (11.5-15.5) % Plt Count 260 (150-450) k/uL MPV 7.3 Neutrophils % 61 % Lymphocytes % 25 % Monocytes % 7 % Eosinophils % 2 % Basophils % 1 % Neutrophils # 4.4 (1.3-7.7) k/uL Lymphocytes # 1.8 (1.0-4.8) k/uL Monocytes # 0.5 (0-1.0) k/uL Eosinophils # 0.1 (0-0.7) k/uL Basophils # 0.1 (0-0.2) k/uL PT (10.0-12.5) sec INR (<1.2) APTT (22.0-30.0) sec Sodium (137-145) mmol/L Potassium (3.5-5.1) mmol/L Chloride (98-107) mmol/L Carbon Dioxide (22-30) mmol/L Anion Gap mmol/L BUN (9-20) mg/dL Creatinine (0.66-1.25) mg/dL Est GFR (CKD-EPI)AfAm (>60 ml/min/1.73 sqM) Est GFR (CKD-EPI)NonAf (>60 ml/min/1.73 sqM) Glucose (74-99) mg/dL Plasma Lactic Acid Alexi (0.7-2.0) mmol/L Calcium (8.4-10.2) mg/dL Total Bilirubin (0.2-1.3) mg/dL AST (17-59) U/L ALT (4-49) U/L Alkaline Phosphatase (38-126) U/L Total Protein (6.3-8.2) g/dL Albumin (3.5-5.0) g/dL Blood Type O Positive Blood Type Confirm O Positive Blood Type Recheck No Previous Record Bld Type Recheck Status CABO Indicated Antibody Screen NEGATIVE Spec Expiration Date 03/17/2024 - 235003/14/24 03/14/24 03/14/24 Range/Units 17:51 17:51 17:51 WBC (3.8-10.6) k/uL RBC (4.30-5.90) m/uL Hgb (13.0-17.5) gm/dL Hct (39.0-53.0) % MCV (80.0-100.0) fL MCH (25.0-35.0) pg MCHC (31.0-37.0) g/dL RDW (11.5-15.5) % Plt Count (150-450) k/uL MPV Neutrophils % % Lymphocytes % % Monocytes % % Eosinophils % % Basophils % % Neutrophils # (1.3-7.7) k/uL Lymphocytes # (1.0-4.8) k/uL Monocytes # (0-1.0) k/uL Eosinophils # (0-0.7) k/uL Basophils # (0-0.2) k/uL PT 10.5 (10.0-12.5) sec INR 0.9 (<1.2) APTT 26.8 (22.0-30.0) sec Sodium 140 (137-145) mmol/L Potassium 4.1 (3.5-5.1) mmol/L Chloride 106 (98-107) mmol/L Carbon Dioxide 26 (22-30) mmol/L Anion Gap 8 mmol/L BUN 20 (9-20) mg/dL Creatinine 1.08 (0.66-1.25) mg/dL Est GFR (CKD-EPI)AfAm 83 (>60 ml/min/1.73 sqM) Est GFR (CKD-EPI)NonAf 72 (>60 ml/min/1.73 sqM) Glucose 102 H (74-99) mg/dL Plasma Lactic Acid Alexi 0.8 (0.7-2.0) mmol/L Calcium 9.7 (8.4-10.2) mg/dL Total Bilirubin 0.6 (0.2-1.3) mg/dL AST 33 (17-59) U/L ALT 31 (4-49) U/L Alkaline Phosphatase 81 (38-126) U/L Total Protein 7.1 (6.3-8.2) g/dL Albumin 4.3 (3.5-5.0) g/dL Blood Type Blood Type Confirm Blood Type Recheck Bld Type Recheck Status Antibody Screen Spec Expiration Date Disposition Clinical Impression: Hematochezia Disposition: HOME SELF-CARE Condition: Good Instructions (If sedation given, give patient instructions): Rectal Bleeding (ED) Additional Instructions: Every disease is a spectrum and a small chance still exists that a serious condition could develop, for this reason, please monitor yourself closely for new, changing or worsening symptoms, symptoms that persist beyond more 48 hours fever, new abdominal or rectal pain, losing more than 1/4 cup of blood in 1 bowel movement or for 2 or greater bowel movements, lightheadedness, dizziness or shortness of breath, inability to tolerate/keep down fluids or your medications, inability to follow up with outpatient providers as instructed and should you experience these symptoms or should you have any further concerns for your wellbeing please return to the ED or call 911 immediately. PLEASE call your primary care physician as soon as possible to arrange / discuss plan for followup appointment. Appointment in the next 1-3 days is strongly encouraged if possible. PLEASE let us know here before you leave if there is anything further we can do to be of any assistance. Take care and feel Better! Is patient prescribed a controlled substance at d/c from ED?: No Referrals: None,Stated [Primary Care Provider] - 1-2 days Yahaira Cagle MD [STAFF PHYSICIAN] - 1-2 days
[2024-03-14 17:58] LABS: Basophils # (A) 0.1 k/uL (0-0.2); Basophils % (A) 1 %; Eosinophils # (A) 0.1 k/uL (0-0.7); Eosinophils % (A) 2 %; HCT 39.1 % (39.0-53.0); HGB 13.5 gm/dL (13.0-17.5); Lymphocytes # (A) 1.8 k/uL (1.0-4.8); Lymphocytes % (A) 25 %; MCH 32.1 pg (25.0-35.0); MCHC 34.4 g/dL (31.0-37.0); MCV 93.2 fL (80.0-100.0); Mean Platelet Volume 7.3; Monocytes # (A) 0.5 k/uL (0-1.0); Monocytes % (A) 7 %; Neutrophils # (A) 4.4 k/uL (1.3-7.7); Neutrophils % (A) 61 %; Platelet Count 260 k/uL (150-450); RDW 12.7 % (11.5-15.5); WBC 7.2 k/uL (3.8-10.6)
[2024-03-14 18:12] LABS: INR 0.9 (<1.2); Partial Thromboplastin Time 26.8 sec (22.0-30.0); Prothrombin Time 10.5 sec (10.0-12.5)
[2024-03-14 18:14] LABS: ALT 31 U/L (4-49); AST 33 U/L (17-59); African American GFR (CKD) 83 (>60 ml/min/1.73 sqM); Albumin 4.3 g/dL (3.5-5.0); Alkaline Phosphatase 81 U/L (38-126); Anion Gap 8 mmol/L; Blood Urea Nitrogen 20 mg/dL (9-20); Calcium 9.7 mg/dL (8.4-10.2); Carbon Dioxide 26 mmol/L (22-30); Chloride 106 mmol/L (98-107); Glucose 102 mg/dL (74-99); Non-African American GFR(CKD) 72 (>60 ml/min/1.73 sqM); Potassium 4.1 mmol/L (3.5-5.1); Sodium 140 mmol/L (137-145); Total Bilirubin 0.6 mg/dL (0.2-1.3); Total Protein 7.1 g/dL (6.3-8.2)
[2024-03-14 19:43] VITALS: BP 195/96; PULSE 57; TEMP 98.2
== END 2024-03-14 19:25 | disposition home or self-care (01) ==
LOC: EC 15:10
CPT/HCPCS: 36415; 80053; 83605; 85025; 85610; 85730; 86850; 86900; 86901; 99283